=== PATIENT | male | born 1965 | race Asian ===

== ENCOUNTER 2021-11-06 10:24 | Outpatient (CLI) | payer BC | END 2021-11-06 10:25 | disposition home or self-care (01) | LOC: SCSRAD 10:24 | PROVIDERS: ATTEND Student in an Organized Health Care Education/Training Program | DX: M25.511 Pain in right shoulder (principal); M79.621 Pain in right upper arm; M19.011 Primary osteoarthritis, right shoulder ==

== ENCOUNTER 2021-12-24 08:05 | Outpatient (CLI) | payer BC | END 2021-12-24 08:06 | disposition home or self-care (01) | LOC: SCSMRI 08:05 | PROVIDERS: ATTEND Internal Medicine Rheumatology | DX: S46.011A Strain of muscle(s) and tendon(s) of the rotator cuff of right shoulder, initial encounter (principal); M75.101 Unspecified rotator cuff tear or rupture of right shoulder, not specified as traumatic; M25.411 Effusion, right shoulder ==

== ENCOUNTER 2022-11-09 10:27 | Outpatient (CLI) | payer BC | END 2022-11-09 10:28 | disposition home or self-care (01) | LOC: BICMAMMO 10:27 | PROVIDERS: ATTEND Student in an Organized Health Care Education/Training Program | DX: Z13.820 Encounter for screening for osteoporosis (principal); M85.89 Other specified disorders of bone density and structure, multiple sites; Z79.52 Long term (current) use of systemic steroids | CPT/HCPCS: 77080 ==